=== PATIENT | female | born 1965 | race Caucasian/White ===

== ENCOUNTER 2023-02-15 16:50 | Outpatient (CLI) | payer BC ==
[2023-02-15 18:05] LABS: INR-International Normal Ratio 0.9; PTT 28.9 sec (22.0-33.0); Prothrombin Time 10.2 sec (9.5-12.1)
== END 2023-02-15 16:51 | disposition home or self-care (01) ==
LOC: LABBT 16:50
PROVIDERS: ATTEND Neurological Surgery
DX: Z01.812 Encounter for preprocedural laboratory examination (principal); M50.023 Cervical disc disorder at C6-C7 level with myelopathy
CPT/HCPCS: 85610; 85730

== ENCOUNTER 2023-02-17 10:27 | Day surgery (SDC) | payer BC ==
[2023-02-16 08:21] VITALS: BMI 43.8
[2023-02-17] MEDS ORDERED: Thrombin 5000 UNITS/5 ML VIAL ONE (11:11)
[2023-02-17] MEDS ORDERED: Vancomycin 1 GM VIAL ONE (11:11)
[2023-02-17] MEDS ORDERED: Midazolam HCl 2 mg/2 ml Vial ONE (11:32)
[2023-02-17] MEDS ORDERED: CEFAZOLIN 2 GM VIAL ONE (11:32)
[2023-02-17] MEDS ORDERED: Sodium Chloride 0.9% 100 ML ONE (11:32)
[2023-02-17] MEDS ORDERED: Famotidine/PF 20 mg/2ml Vial ONE (11:35)
[2023-02-17] MEDS ORDERED: Rocuronium Bromide 10 MG/ML (10ML VIAL) ONE ×2 (11:35→11:51)
[2023-02-17] MEDS ORDERED: PROPOFOL 20 ML ONE (11:35)
[2023-02-17] MEDS ORDERED: Lidocaine 1% PF 5 ML VIAL ONE ×2 (11:35→11:51)
[2023-02-17] MEDS ORDERED: Fentanyl 250 MCG/5 ML VIAL ONE (11:35)
[2023-02-17] MEDS ORDERED: PHENYLEPHRINE-NS 100 MCG/ML 10 ML SYRINGE ONE ×3 (11:51→12:54)
[2023-02-17] MEDS ORDERED: Dexamethasone 20 MG/5 ML VIAL ONE ×2 (11:51→12:54)
[2023-02-17] MEDS ORDERED: PROPOFOL 200 MG/20 ML VIAL ONE (11:51)
[2023-02-17] MEDS ORDERED: Ondansetron PF 4 MG/2 ML Vial ONE ×2 (11:51→14:43)
[2023-02-17] MEDS ORDERED: HYDROmorphone 2 MG/ML VIAL SLOW IVP PRN (14:48)
[2023-02-17] MEDS ORDERED: PACU-Morphine 4MG/ML VIAL SLOW IVP PRN (14:48)
[2023-02-17] MEDS ORDERED: Ondansetron HCl/PF 4 MG/2 ML Vial IVP PRN (14:48)
[2023-02-17] MEDS ORDERED: Morphine Sulfate 2 MG/ML SYRINGE SLOW IVP PRN (14:48)
[2023-02-17] MEDS ORDERED: Promethazine HCl 25 MG/ML VIAL IM PRN (14:48)
[2023-02-17] MEDS ORDERED: NEOSTIGMINE 3 MG/3 ML SYR 3 MG/3 ML SYRINGE ONE (14:49)
[2023-02-17] MEDS ORDERED: Glycopyrrolate 0.2 MG/ML 5 ML SYRINGE ONE (14:49)
[2023-02-17] MEDS ORDERED: fentaNYL 50 mcg/mL 1 mL Vial ONE ×2 (15:39→15:56)
[2023-02-17] MEDS ORDERED: HYDROcodone/Acetaminophen 7.5/325 mg Tablet ONE ×2 (17:32→18:10)
== END 2023-02-17 19:37 | disposition home or self-care (01) ==
LOC: SDC 10:27
PROVIDERS: ATTEND Neurological Surgery
PROC: 0RG10A0 Fusion of Cervical Vertebral Joint with Interbody Fusion Device, Anterior Approach, Anterior Column, Open Approach (ICD-10-PCS; principal; 2023-02-17)
DX: M50.023 Cervical disc disorder at C6-C7 level with myelopathy (principal); G95.20 Unspecified cord compression; I10 Essential (primary) hypertension; E11.9 Type 2 diabetes mellitus without complications; M19.90 Unspecified osteoarthritis, unspecified site; F32.A Depression, unspecified; E66.9 Obesity, unspecified; Z68.41 Body mass index [BMI] 40.0-44.9, adult; Z79.899 Other long term (current) drug therapy
CPT/HCPCS: C1713; J1100; J2250; J2405; J2704; J3010; J3370; J3490; S0028

== ENCOUNTER 2023-05-06 12:23 | Outpatient (CLI) | payer BC | END 2023-05-06 12:24 | disposition home or self-care (01) | LOC: RAD 12:23 | PROVIDERS: ATTEND Neurological Surgery | DX: M47.12 Other spondylosis with myelopathy, cervical region (principal); Z98.890 Other specified postprocedural states | CPT/HCPCS: 72040 ==